=== PATIENT | male | born 1985 | race Caucasian/White ===

== ENCOUNTER 2017-05-21 09:57 | Emergency (ER) | payer SELFPAY ==
[~2017-05-21] VITALS: Ht 170.2 cm; Wt 69.0 kg
[2017-05-21 10:06] VITALS: BP 159/89
[2017-05-21] MEDS ORDERED: IBUPROFEN 600MG TABLET PO ONE (12:00)
== END 2017-05-21 12:22 | disposition home or self-care (01) ==
LOC: ER 09:57
DX: S39.012A Strain of muscle, fascia and tendon of lower back, initial encounter (principal); S16.1XXA Strain of muscle, fascia and tendon at neck level, initial encounter; V49.49XA Driver injured in collision with other motor vehicles in traffic accident, initial encounter; Y93.89 Activity, other specified; Y92.410 Unspecified street and highway as the place of occurrence of the external cause
CPT/HCPCS: 99283